=== PATIENT | female | born 1985 | race Two or more races ===

== ENCOUNTER 2018-09-27 16:40 | Inpatient (IN) | END 2018-09-29 12:52 | disposition home or self-care (01) | DRG 833 ==

== ENCOUNTER 2018-10-29 12:18 | Inpatient (IN) | payer BC ==
[~2018-10-29] VITALS: Ht 162.6 cm; Wt 129.3 kg
[~2018-10-29 12:18] MED LIST: ALBU8.5H8; PREN-46 PO; PREN1TAB79 PO
[2018-10-29 12:35] VITALS: Ht 162.6 cm; Wt 129.3 kg
[2018-10-29 12:36] VITALS: BP 142/77; PULSE 86; RESP 17
[2018-10-29] MEDS: BETAMET NA PHOS/AC(6 MG/ML) 2 ML INJ SYG IM SCH (18:42)
[2018-10-29] MEDS: ACCU-CHEK XX SCH (20:49)
[2018-10-30] MEDS: ACCU-CHEK XX SCH ×4 (08:00→20:01)
[2018-10-30] MEDS: PRENATAL VITAMIN PO SCH (10:28)
--- NOTE | 2018-10-30 15:02 | PERINOTE ---
Date/Time of Note Date/Time of Note DATE: 10/30/18 TIME: 14:52 Assessment/Recommendations Other Assessments IUP at 34+ weeks GA Preeclampsia, severe by LFT criteria. Gestational diabetes, suboptimal control Morbid obesity Prior delivery Recommendations: Agree with plan for "rescue" course of steroids Would consider an insulin sliding scale for blood glucose control during steroid administration. Metformin is contraindicated in patients with liver disease. Given elevated LFTs, would repeat the lab 12 hours after the prior exam. If there is an increase of >50% in either AST or ALT, would consider immediate delivery. Otherwise would deliver after steroid course as the patient is >34 weeks with severe preeclampsia. OB Subjective Free Text/Dictaton Patient admitted from the Perinatology clinic for elevated BP. Was previoulsy admitted for this in September, diagnosed with preeclampisa. Currently without symptoms, although the AST and ALT are elevated, different from the September admission. Patient also with gestational diabetes, currently on no meds, although blood glucose control is suboptimal. Patient with morbid obesity. , delivery HD# 2 IUP @ [id number] Current Medications Current Medications Betamethasone Acet/Betameth SodPhos (Celestone Soluspan) 12 mg Q24H IM Last administered on 10/29/18at 18:42; Admin Dose 12 MG; Start 10/29/18 at 15:00; Stop 10/30/18 at 15:01 Diagnostic Test (Pha) (Accu-Chek) 1 ea FBSPP XX Last administered on 10/29/18at 20:49; Admin Dose 1 EA; Start 10/29/18 at 19:35 Prenat Multivit/ [place]/Iron/Folic Ac () 1 tab DAILY PO Last administered on 10/30/18at 10:28; Admin Dose 1 TAB; Start 10/30/18 at 09:00 OB Admission Exam Physical Exam Vitals: Vital Signs Date Temp Pulse Resp B/P (MAP) Pulse Ox O2 O2 Flow FiO2 Time Delivery Rate 10/29/18 97.6 86 17 142/77 12:36 (98) Abdomen: WNL Reflexes: Hyperreflexia Present Last 72 hourBlood Glucose Bedside Glucose - 72 Hours Test 10/29/18 20:31 10/30/18 08:29 10/30/18 10:33 10/30/18 14:32 Bedside 108 114 154 105 Glucose mg/dL (70-220) mg/dL (70-220) mg/dL (70-220) mg/dL (70-220) Last 72 hours Lab Results CBC & BMP 10/29/18 13:00 10/30/18 07:22 Liver Function Test 10/29/18 13:00 10/30/18 07:22 Alanine Aminotransferase (ALT/SGPT) 119 H 131 H Albumin 2.8 L 2.9 L Alkaline Phosphatase 243 H 253 H Aspartate Amino Transf (AST/SGOT) 60 H 69 H Direct Bilirubin 0.00 0.00 Total Protein 6.1 6.0 L Copies To: CC: KRUPA NICOLE MD ; LLOYD CALLAWAY MD Oct 30, 2018 15:02
--- NOTE | 2018-10-30 17:15 | HP ---
Date/Time of Note Date/Time of Note DATE: 10/30/18 TIME: 16:31 OB - History Hx of Present Free Text/Dictation This is a 33 years old 34 weeks and 1 day referred from perinatology for extended observation, her is complicated with preeclampsia with abnormal liver enzyme and gestational diabetes no medication, her fasting blood sugar is 110 and postprandial 154. Perinatologist recommending after the second dose of steroid if her liver enzymes are rising she needs to be delivered, she has no neurological symptoms , denies headache. Blurry vision or epigastric pain her blood pressures, the highest 152/86, the rest of them are 140s over 80s, she also has a history of previous senior management consultant Complaint: 34 weeks plus complicated with preeclampsia Estimated Due Date: Dec 10, 2018 : 3 Para: 1 Spontaneous : 1 Care: Good Care Ultrasounds: Normal mid trimester US Obstetrical Complications: Gestational Diabetes, Pre-eclampsia Medical Complications: Respiratory (Asthma), Other (Asthma) Past Family/Social History * Past Medical, Surgical, Family and Obstetric Histories reviewed from chart. Rubella: immune RPR/VDRL: Negative GBS Status: Unknown HBsAG: Negative OB Admission Exam Vital Signs Vital Signs Vital Signs Date Temp Pulse Resp B/P (MAP) Pulse Ox O2 O2 Flow FiO2 Time Delivery Rate 10/29/18 97.6 86 17 142/77 12:36 (98) Physical Exam HEENT: WNL Heart: Rhythm Normal Lungs: Clear, Equal Extremities: Other (Hyperactive lower extremities reflexes) Cervical Dilatation: None Station: Ballotable Membranes: Intact Heart Rate: 130's Accelerations: Accelerations Present Decelerations: No Decelerations Varibility: Moderate Last 72 hourBlood Glucose Bedside Glucose - 72 Hours Test 10/29/18 20:31 10/30/18 08:29 10/30/18 10:33 10/30/18 14:32 Bedside 108 114 154 105 Glucose mg/dL (70-220) mg/dL (70-220) mg/dL (70-220) mg/dL (70-220) Last 72 hours Lab Results CBC & BMP 10/29/18 13:00 10/30/18 07:22 Liver Function Test 10/29/18 13:00 10/30/18 07:22 Alanine Aminotransferase (ALT/SGPT) 119 H 131 H Albumin 2.8 L 2.9 L Alkaline Phosphatase 243 H 253 H Aspartate Amino Transf (AST/SGOT) 60 H 69 H Direct Bilirubin 0.00 0.00 Total Protein 6.1 6.0 L OB Assessment/Plan Reason for admission: other (34 weeks, implicated with preeclampsia and gestational diabetes) Other plan: 33 years old 34 weeks plus gestation. complicated with preeclampsia and gestational diabetes.with elevated liver enzyme. Perinatologist recommending delivery if her enzymes are increasing. she also rec ommended magnesium sulfate. Patient is due for her second dose of betamethasone, and to repeat her liver enzyme at 7 PM,we will proceed with delivery pending the rise of liver enzyme. KRUPA NICOLE MD Oct 30, 2018 16:43
[2018-10-30] MEDS ORDERED: ACETAMINOPHEN 325 MG TAB PO PRN (18:00)
[2018-10-30] MEDS: BETAMET NA PHOS/AC(6 MG/ML) 2 ML INJ SYG IM SCH (19:48)
[2018-10-30] MEDS: LACTATED RINGER'S 500 ML IV SCH (19:58)
[2018-10-30] MEDS: MAGNESIUM SULFATE 20 GM/500 ML 500 ML IV SCH (20:00)
[2018-10-31] VITALS (8 sets, daily range): BP systolic 104–132; BP diastolic 59–77; PULSE 60–97; RESP 16–18
[2018-10-31] MEDS: MAGNESIUM SULFATE 20 GM/500 ML 500 ML IV SCH ×2 (05:50→17:49)
[2018-10-31] MEDS ORDERED: EPHEDrine SULFATE 50 MG/5 ML SYG ONE (07:00)
[2018-10-31] MEDS ORDERED: PHENYLephrine (100 MCG/ML) 10ML SYG ONE (07:00)
[2018-10-31] MEDS: ACCU-CHEK XX SCH ×2 (07:25→21:15)
[2018-10-31] MEDS: LACTATED RINGER'S 500 ML IV SCH ×2 (07:45→08:50)
[2018-10-31] MEDS: PRENATAL VITAMIN PO SCH (09:00)
--- NOTE | 2018-10-31 09:51 | PREAC ---
Date/Time of Note Date/Time of Note DATE: 10/31/18 TIME: 09:49 Anesthesia Eval and Record Evaluation Time Pre-Procedure Interview DATE: 10/31/18 TIME: 09:49 Age 33 Sex female NPO: 8 hrs Preoperative diagnosis c section Planned procedure repeat csection, PIH Past Medical History Past Medical History: Includes GI: Morbid obesity : Gestational diabetes, PIH Surgery & Anesthesia Issues No known issue Meds Anticoagulation: No Beta Jing within 24 hr: No Reason Beta Jing not given: Pt. not on B-Jing Reported Medications Vit W-Ca,Fe,FA(<1 mg) ( Vitamins) 1 Each Tablet, 1 EACH PO 09/29/18 Vit #108/Iron/Fa ( ONE TABLET) 1 Each Tablet, 1 EACH PO AM 07/27/15 Albuterol Sulfate* (Proair HFA*) 8.5 Gm Hfa.aer.ad 02/17/11 Current Medications Diagnostic Test (Pha) (Accu-Chek) 1 ea FBSPP XX Last administered on 10/30/18at 19:38; Admin Dose 1 EA; Start 10/29/18 at 19:35 Prenat Multivit/ Director Emergency/Iron/Folic Ac () 1 tab DAILY PO Last administered on 10/30/18at 10:28; Admin Dose 1 TAB; Start 10/30/18 at 09:00 Magnesium Sulfate 500 ml @ 50 mls/hr Q10H IV Last administered on 10/31/18at 05:50; Admin Dose 50 MLS/HR; Start 10/30/18 at 17:30 Acetaminophen (Tylenol Tab) 650 mg Q4H PRN PO MILD PAIN(1-3)OR ELEVATED TEMP; Start 10/30/18 at 18:00 Lactated Ringer's 500 ml @ 75 mls/hr Q6H40M IV Last administered on 10/31/18at 07:45; Admin Dose 75 MLS/HR; Start 10/30/18 at 19:30 Meds reviewed: Yes Allergies Coded Allergies: No Known Drug Allergies (Verified Allergy, Mild, 08/06/15) Allergies Reviewed: Yes Labs/Studies Labs Reviewed: Reviewed by anesthesiologist Result Diagram: 10/30/18185510/30/18 1856 Laboratory Tests 10/30/18 18:56 test: Positive Studies: ECG (n/a), CXR (n/a) Pre-procedure Exam Last vitals Vital Signs Date Temp Pulse Resp B/P (MAP) Pulse Ox O2 O2 Flow FiO2 Time Delivery Rate 10/29/18 97.6 86 17 142/77 12:36 (98) Airway: Adequate mouth opening Mallampati: Mallampati I Teeth: Normal Lung: Normal Heart: Normal ASA Physical Status ASA physical status: 3 Emergency: None Planned Anesthetic Neuraxial: Spinal, Epidural Planned Pain Management Epidural, Sub-arachniod narcotics Pre-operative Attestations Prior to commencing anesthesia and surgery, the patient was re-evaluated, there was verification of: *The patient's identity *The results of appropriate recent lab work and preoperative vital signs *The above evaluation not changing prior to induction *Anesthetic plan, risk benefits, alternative and complications discussed with patient/family; questions answered; patient/family understands, accepts and wishes to proceed. ERIC KONG MD Oct 31, 2018 09:51
[2018-10-31] MEDS ORDERED: CITRIC ACID/NA CITRATE 30 ML CUP ONE (09:55)
[2018-10-31] MEDS ORDERED: CITRIC ACID/NA CITRATE 30 ML CUP PO ONE ×2 (10:00)
[2018-10-31] MEDS ORDERED: METHYLERGONOVINE 0.2 MG INJ IM PRN ×2 (10:00→15:30)
[2018-10-31] MEDS ORDERED: OXYTOCIN 30 UNITS/LR 500 ML IV PRN ×2 (10:00→15:30)
[2018-10-31] MEDS ORDERED: CEFAZOLIN 3 GM in DEXTROSE 5% 100 ML IV SCH (10:00)
[2018-10-31] MEDS ORDERED: MISOPROSTOL 200 MCG TAB PR PRN ×2 (10:00→15:30)
[2018-10-31] MEDS ORDERED: CARBOPROST 250 MCG INJ IM PRN ×2 (10:00→15:30)
[2018-10-31] MEDS ORDERED: OXYTOCIN 30 UNITS/LR 500 ML IV SCH (10:00)
[2018-10-31] MEDS ORDERED: OXYTOCIN 30 UNITS/LR 500 ML IV ONE (10:05)
[2018-10-31] MEDS ORDERED: morphine SULFATE/PF (10 MG/10 ML) INJ ONE (10:05)
[2018-10-31] MEDS ORDERED: METOCLOPRAMIDE 10 MG INJ ONE (10:05)
[2018-10-31] MEDS ORDERED: ONDANSETRON 4 MG INJ ONE (10:05)
[2018-10-31] MEDS ORDERED: BUPIVACAINE 0.75%/DEXT (SPINAL) 2 ML INJ ONE (10:06)
[2018-10-31] MEDS ORDERED: OXYTOCIN 30 UNITS/LR 500 ML IVPB ONE (11:45)
[2018-10-31] MEDS ORDERED: DIPHENHYDRAMINE 50 MG INJ IV PRN ×2 (12:00→12:30)
[2018-10-31] MEDS ORDERED: ONDANSETRON 4 MG INJ IV PRN ×2 (12:00→12:30)
[2018-10-31] MEDS ORDERED: KETOROLAC 30 MG INJ IV PRN ×2 (12:00→12:30)
[2018-10-31] MEDS ORDERED: morphine (1 MG/ML) 10ML SYRINGE IV PRN ×3 (12:00)
--- NOTE | 2018-10-31 12:01 | PAC ---
Date/Time of Note Date/Time of Note DATE: 10/31/18 TIME: 12:00 Post-Anesthesia Notes Post-Anesthesia Note Last documented vital signs Vital Signs Date Temp Pulse Resp B/P (MAP) Pulse Ox O2 O2 Flow FiO2 Time Delivery Rate 10/29/18 97.6 86 17 142/77 97 NC 2 12:36 (98) Activity: WNL Respiratory function: WNL Cardiovascular function: WNL Mental status: Baseline Pain reasonably controlled: Yes Hydration appropriate: Yes Nausea/Vomiting absent: No ERIC KONG MD Oct 31, 2018 12:01
[2018-10-31] MEDS ORDERED: NALOXONE (0.4 MG/ML) INJ IV PRN (12:30)
[2018-10-31] MEDS ORDERED: morphine 2 MG INJ IV PRN ×3 (12:30)
--- NOTE | 2018-10-31 14:12 | OPR ---
Operative Report Planned Procedure Free Text/Dictation 33 years old female 34 weeks2/7 days. History of previous section, her is complicated with severe PIH with rising liver enzyme a nd gestational diabetes. Perinatologist recommended delivery if liver enzymes are rising. Her liver enzyme on October 30 at 7 AM ,AST 69, ALT 131 and 12 hours later AST was up to 108 and ALT to 182. She also has 3+ proteinuria Procedure date Oct 31, 2018 Procedure(s) Repeat Performed by see signature line Channel Cementer Outsole Machine: DANIELA DOWD M.D. 2nd Channel Cementer Outsole Machine None Anesthesiologist: ERIC KONG MD Pre-procedure diagnosis 34/12 34 weeks 3/7day, her is complicated with severe PIH. Rising liver enzyme. 3+ proteinuria. Perinatologist recommended delivery [id number] Anesthesia Type: [id number] spinal Post-Procedure Post-procedure diagnosis Same as above Findings Live Baby boy 7 and 9 Estimated Blood Loss: 500 - 600 mls Specimen(s) Placenta sent to pathology Grafts/Implant(s) none Complication(s) none Pt Condition post procedure: stable Procedure Description Under satisfactory spinal anesthesia patient prepped and draped and placed in supine position. Pfannenstiel incision was made. Incision carried through the subcutaneous tissue. Fascia incised to the length of incision. Rectus muscle divided in midline. Peritoneum exposed and entered to a vertical incision. Exploration of abdomen revealed [gravid uterus at term normal-appearing tubes and ovaries.] Bladder flap was developed. Transverse incision was made in the lower segment of the uterus. Amniotic sac ruptured, [clear amniotic fluid noted.] Live baby boy was delivered from unengaged vertex.Naso oropharyngeal suction was performed. Baby handed to the team for immediate attention. Patient received 20 units of Pitocin. Placenta delivered manually intact. Uterine cavity cleaned with a wet sponge and drainage established. Uterus closed in 2 layers using Monocryl #1 in continuous fashion. Peritoneal cavity irrigated with warm saline. Sponge needle instrument reported to be correct. Abdominal peritoneum closed with 2-0 chromic catgut continuously. Fascia closed with #1 PDS in a continuous fashion. Subcutaneous tissue irrigated with warm saline and approximated with 2-0 chromic catgut skin closed with N sorb. Estimated blood loss [600 cc]. Urine bag containing [200] mL of [clear] urine. Patient tolerated procedure well and transferred to recovery room in good condition. KRUPA NICOLE MD Oct 31, 2018 11:44
[2018-10-31] MEDS ORDERED: HYDROCODONE/APAP (5/325) TAB PO PRN ×2 (15:30)
[2018-10-31] MEDS ORDERED: LANOLIN HPA 1 PKT TOP PRN (15:30)
[2018-10-31] MEDS ORDERED: CEFAZOLIN 1 GM/50 ML (PMX) 50 ML IVPB SCH (15:30)
--- NOTE | 2018-10-31 15:39 | NUR ---
SW: ATTEMPTED VISIT SW attempted to meet with patient today for NICU assessment, however she was still in recovery room and RN requested SW reattempt tomorrow. SW will reattempt tomorrow for NICU assessment. SW remains available as needed.
[2018-10-31] MEDS: OXYTOCIN 30 UNITS/LR 500 ML IV SCH ×3 (17:41→23:12)
--- NOTE | 2018-10-31 19:07 | NUR ---
LEFT VOICE MESSAGE TO DR NICOLE REGARDING PATIENT'S MAGNESIUM LEVEL OF 6.5.
--- NOTE | 2018-10-31 19:25 | NUR ---
YARA CHARGE NURSE SPOKE TO DR NICOLE AND RECEIVED ORDERS TO DECREASE MAGNESIUM SULFATE FROM 2GM TO 1GM DUE TO MAGNESIUM LEVEL OF 6.5.
--- NOTE | 2018-10-31 19:28 | NUR ---
MAGNESIUM SULFATE DECREASED TO 1GM OR 25ML/HOUR.
[2018-11-01] VITALS (11 sets, daily range): BP systolic 106–132; BP diastolic 51–91; PULSE 60–90; RESP 17–18
[2018-11-01] MEDS: ALBUTEROL HFA 8 GM INHALER INH PRN ×2 (00:20→08:24)
[2018-11-01] MEDS: OXYTOCIN 30 UNITS/LR 500 ML IV SCH ×6 (04:07→23:12)
--- NOTE | 2018-11-01 06:58 | NUR ---
Pt is on 1 Gm of Magnesium Sulfate via infusing pump. Magnesium level at 0000 today is 5.8. Orders to decreased Magnesium not done to Magnesium being less than 6. Pt has been on bedrest the entire nigt with repositioning every 2 hrs. Pericare given every 4 hours as needed. Output has been appropriate at 1500 mls for 12 hrs. Informed pt she will be up to BR today after rangel is removed. Patient was given 2-4 ml/hr of O2 via nasal cannula due to pulse Ox decreasing when patient would be in a deep sleep. When patient is awake O2 sat is 95 or above. When patient is asleep O2 sat. is 90-92.
--- NOTE | 2018-11-01 07:36 | OPPN ---
Date/Time of Note Date/Time of Note DATE: 11/01/18 TIME: 07:36 Anesthesia Follow up Anesthesia Follow up Last documented vital signs Vital Signs Date Temp Pulse Resp B/P (MAP) Pulse Ox O2 O2 Flow FiO2 Time Delivery Rate 11/01/18 97.9 71 18 117/68 94 Nasal 4.0 05:16 (84) Cannula Respiratory function: WNL Cardiovascular function: WNL Comments A 33 year female s/p duramorph for post op pain POD#1 is doing fine. No headache, N/V, itching, neural deficit, pain. ERIC KONG MD Nov 01, 2018 07:36
[2018-11-01] MEDS: SENNA/DOCUSATE NA (8.6MG/50MG) TAB PO SCH ×2 (08:22→20:22)
[2018-11-01] MEDS: MAGNESIUM SULFATE 20 GM/500 ML 500 ML IV SCH (08:41)
--- NOTE | 2018-11-01 09:56 | QN ---
Documentation Comment Post day 1 Afebrile Vital signs are stable. Her blood pressure running in 110 120 over 70s, her blood sugar 98 Incision dry. Bowel sounds present. Post DC magnesium sulfate and IV ambulatio n encouraged. Extremities reflexes are normal. 1+ pedal edema Good urine output KRUPA NICOLE MD Nov 01, 2018 09:56
--- NOTE | 2018-11-01 10:15 | NUR ---
visit. MOB has breast pump set up in room and stated she has used it 1x but was not able to express milk. Rev. therapeutic breast massage and hand expression. Offered to assist with collecting colostrum, MOB stated she will call when she is ready. Provided syringes. Encouraged MOB to call as soon as she is ready. Gave info on lucy shane technique. Provided ext.
[2018-11-01] MEDS: OXYCODONE/ACETAMINOPHEN (5/325) TAB PO PRN ×3 (12:01→20:22)
--- NOTE | 2018-11-01 12:39 | NUR ---
SW NOT: NICU ADMISSION Reviewed the baby's chart and met with both parents at bedside in PP. Both were receptive and cooperative. Spoken language was Maltese. Baby was admitted to the NICU for prematurity. GA for MoB was 34.2 weeks. EDC was on 12/10/2018. Pt stated she is G-3 and P-2. SAB-1. Pt and FoB live together at the address on the face sheet with their 3y/o son. His Godmother is baby sitting while the parents are at the hospital. Pt is employed in [employer] and has filed her disability claim. FoB also works in [employer] and he plans to file for FMLA after the baby is discharged home to assist the MoB. MoB stated she plans to breastfeed and performance improvement consultant will assist with breast pump resources. Pt stated she has a car seat and a bassinet for the baby. FoB will transport at discharge. PMD for the baby will be Dr. Kerns . Pt stated she experienced PP Depression for 2 weeks after her 3y/o son was born. She did not need any professional intervention at that time and the depression self-resolved. This food writer discussed the Speak Up When You Are Down brochure and the sxs of PP Depression. Pt was given the brochure and was encouraged to contact the numbers on the brochure or to discuss any concerns with her OB. No current sxs of depression per pt. SW provided supportive intervention and will remain available. Baby may be discharged to the parents when medically cleared.
[2018-11-01] MEDS: IBUPROFEN 600 MG TAB PO SCH (17:44)
--- NOTE | 2018-11-01 18:27 | NUR ---
EOSS. PT, IS IN STABLE CONDITION . FUNDUS FIRM NORMAL BLEEDING NO COMPLAINED OF PAIN OR ANY PROBLEM .DURING THE DAY GAVE PUMP TO PT, AND TAUGHT HER HOW TO PUMP HER BREAST AND KEEP MILK FOR BABY . TRIED TO SEND HER TO NICU TO SEE HER BABY BUT SHE REFUSED. UNDER OBSERVATION .
[2018-11-02] MEDS: IBUPROFEN 600 MG TAB PO SCH ×4 (00:31→19:06)
[2018-11-02] MEDS: OXYTOCIN 30 UNITS/LR 500 ML IV SCH ×6 (03:12→23:12)
[2018-11-02 04:00] VITALS: BP 135/75; PULSE 80; RESP 18
[2018-11-02] MEDS: MAGNESIUM SULFATE 20 GM/500 ML 500 ML IV SCH (04:35)
--- NOTE | 2018-11-02 06:29 | NUR ---
EOSS Patient in stable condition, bonding well with baby in NICU, voiding without difficulty, pain controlled by the medication, , fundus firm with small amount of lochia, original dressing removed, incision dry and intact with glue, abdominal binder given passing gas no bowel movement yet
[2018-11-02] MEDS: ACCU-CHEK XX SCH ×4 (07:30→20:05)
[2018-11-02 08:00] VITALS: BP 129/70; PULSE 87; RESP 18
[2018-11-02] MEDS: SENNA/DOCUSATE NA (8.6MG/50MG) TAB PO SCH ×2 (11:30→21:12)
--- NOTE | 2018-11-02 11:33 | QN ---
Documentation Comment POD#2 is stable No VB +BM +voids VS stable Gen NAD Abd soft NT ND Incision intact Genitalia No blood at perineum --->Ambulation DANIELA DOWD M.D. Nov 02, 2018 11:33
[2018-11-02] MEDS: OXYCODONE/ACETAMINOPHEN (5/325) TAB PO PRN (14:28)
[2018-11-02] MEDS ORDERED: NA PHOSPHATE/BIPHOS 133 ML ENEMA PR ONE (14:30)
[2018-11-02 16:10] VITALS: BP 135/66; PULSE 80; RESP 20
--- NOTE | 2018-11-02 18:07 | NUR ---
EOSS, PT, IS IN STABLE CONDITION . FUNDUS FIRM NORMAL BLEEDING . NO COMPLAINED OF PAIN OR ANY PROBLEM . DURING THE DAY ASKED PT, TO PUMP HER BREAST AND KEEP MILK FOR BABY SENT PT, TO NICU TO SEE HER BABY .
[2018-11-02 20:00] VITALS: BP 137/85; PULSE 87; RESP 18
[2018-11-03] MEDS: MAGNESIUM SULFATE 20 GM/500 ML 500 ML IV SCH (00:41)
[2018-11-03] MEDS: IBUPROFEN 600 MG TAB PO SCH ×3 (00:44→12:52)
[2018-11-03] MEDS: OXYCODONE/ACETAMINOPHEN (5/325) TAB PO PRN (01:40)
[2018-11-03] MEDS: OXYTOCIN 30 UNITS/LR 500 ML IV SCH (03:12)
--- NOTE | 2018-11-03 05:57 | NUR ---
EOSS Patient in stable condition, bonding well with baby in NICU, using breast pump, pain controlled by the medication, fundus firm with scant amount of lochia, ambulating well, afebrile.
--- NOTE | 2018-11-03 06:55 | NUR ---
RPR WAS LAST DONE IN AUGUST 2018 PER LABORATORY, STAT RPR WAS ORDERED AND WILL BE USING THE BLOOD SPECIMEN FROM YESTERDAY IN THE LABORATORY
[2018-11-03 07:30] VITALS: BP 137/77; PULSE 75; RESP 18
[2018-11-03] MEDS: ACCU-CHEK XX SCH ×2 (07:30→10:05)
--- NOTE | 2018-11-03 08:00 | NUR ---
JHOANA NOTES: LC provided mother a list of places were she can rent a hospital grade pump. Mother stated that she does not qualified for WIC. Mother stated that she will call her insurance for a breast pump. LC spoke to mother about the importance of a hospital grade pump when baby is in the the NICU to help maintain and increase milk supply. Mother verbalized understand, RN to follow.
[2018-11-03] MEDS ORDERED: DIPHTH/TET/ACEL PERTUSS (ADULT) 0.5 ML VIAL IM* ONE (09:00)
--- NOTE | 2018-11-03 09:43 | PD.PPDC ---
CARE INFORMATION ASSOCIATE Discharge Instruction Condition [id number] Patient Condition: Ilbgl5u Good Diet Gdhui1Ws Diet: Ysdyi9g Special Diet Activity/Restrictions [id number] Activity: Dfazs6a Normal Activity May Shower [id number] Restrictions: Rlvmi7j No Exercising No Lifting No Driving No Sexual Activity Nothing in the Vagina No [place] No Tampons, douche Wound/Drain Care Instructions [id number] Wound/Drain Care Vneuc5x Remove Steri Strips in 1 week Instructions: Follow-up Follow-up with Physician: 1, Week/Weeks Return to clinic for [id number] CENTER MACHINE OPERATOR Instructions: Umanj6c Fever greater than 101 Chills Worsening abdominal pain Excessive Vaginal Bleeding More than 2 pads per hour Unable to tolerate diet Lcamm0Mj OB Instructions: Zgkib7n Breast Tenderness Depression Blurried Vision Headache [id number] Surgical Instructions: Ukgyg9y Incisional Drainage Incisional Redness KRUPA NICOLE MD Nov 03, 2018 09:43
--- NOTE | 2018-11-03 09:50 | DS ---
Date/Time of Note Date/Time of Note DATE: 11/03/18 TIME: 09:47 Discharge Summary Admission/Discharge Info Admit Date/Time Oct 29, 2018 at 14:30 Discharge Date/Time November 03, 2018 9:45 AM Discharge Diagnosis Post repeat , PIH, GDM Patient Condition: Good Consults Perinatologist Procedures Repeat Hx of Present Illness 34-1/2 weeks. Complicated with severe PIH, gestational diabetes Hospital Course Satisfactory recovery. Incision dry abdomen soft. Bowel sounds present. Lochia normal. Extremities normal Home Meds Reported Medications Vit W-Ca,Fe,FA(<1 mg) ( Vitamins) 1 Each Tablet, 1 EACH PO 09/29/18 Vit #108/Iron/Fa ( ONE TABLET) 1 Each Tablet, 1 EACH PO AM 07/27/15 Albuterol Sulfate* (Proair HFA*) 8.5 Gm Hfa.aer.ad 02/17/11 Primary Care Provider Not On Staff Doctor Time spent on discharge: < 30 minutes Pending Labs Laboratory Tests Test 11/02/18 11:26 11/02/18 19:05 11/02/18 21:16 11/03/18 08:08 Bedside 107 109 137 85 Glucose mg/dL (70-220) mg/dL (70-220) mg/dL (70-220) mg/dL (70-220) KRUPA NICOLE MD Nov 03, 2018 09:50
[2018-11-03] MEDS: SENNA/DOCUSATE NA (8.6MG/50MG) TAB PO SCH (10:05)
--- NOTE | 2018-11-03 11:20 | NUR ---
WENT TO NICU TO VISIT BABY.
--- NOTE | 2018-11-03 13:00 | NUR ---
DISCHARGE INSTRUCTIONS GIVEN TO THE PATIENT.THE PATIENT VERBALIZED UNDERSTANDING OF INSTRUCTIONS.REITERATED TO THE PATIENT THE IMPORTANCE OF TAKING A SHOWER DAILY AND KEEPING THE CSECTION WOUND CLEAN AND DRY THEREAFTER.GIVEN EDUCATION ABOUT SIGNS OF INFECTION AND WHAT TO DO.GIVEN EDUCATION ABOUT SIGNS OF HIGH BP AND WHAT TO DO.PATIENT VERBALIZED UNDERSTANDING. PATIENT STATED THAT SHE ALREADY HAS AN APPT WITH DR. BLAIR SARABIA ON THURSDAY.
--- NOTE | 2018-11-03 13:25 | NUR ---
discharged via wheelchair.
== END 2018-11-03 13:25 | disposition home or self-care (01) | DRG 788 ==
LOC: L-D 12:18 → OBT 12:18 → L-D 14:30 → OBT 14:30 → PP1 15:30 → L-D 10-30 21:50 → PP1 10-31 15:09
PROVIDERS: ADMIT Obstetrics & Gynecology; ATTEND Obstetrics & Gynecology
PROC: 10D00Z1 Extraction of Products of Conception, Low, Open Approach (ICD-10-PCS; principal; 2018-10-31 11:00)
DX: O14.14 Severe pre-eclampsia complicating childbirth (principal); O34.211 Maternal care for low transverse scar from previous cesarean delivery; O99.214 Obesity complicating childbirth; E66.01 Morbid (severe) obesity due to excess calories; Z37.0 Single live birth; Z3A.34 34 weeks gestation of pregnancy
CPT/HCPCS: 36415; 76818; 80053; 81001; 82575; 82962; 83735; 84156; 84560; 85025; 85384; 85610; 85730; 86592; 86850; 86900; 86901; 88307; 99464; G0463; J0690; J0702; J1885; J2274; J2370; J2405; J2590; J2765; J3475; J7120